=== PATIENT | female | born 1955 | race Caucasian/White ===

== ENCOUNTER 2018-12-01 07:15 | Inpatient (IN) ==
[2018-12-01] MEDS ORDERED: KETOROLAC 15 MG/1 ML VIAL IV PRN (08:39)
[2018-12-01] MEDS ORDERED: ACETAMINOPHEN 325 MG TABLET PO PRN (08:39)
[2018-12-01] MEDS ORDERED: ROPIVACAINE 0.5% 30 ML VIAL ONE (12:10)
[2018-12-01] MEDS: LACTATED RINGERS 1,000 ML IV SCH ×2 (12:13→17:44)
[2018-12-01 12:26] LABS: Apearance,Urine CLEAR (Clear); Bilirubin,Urine Negative (Negative); Blood, Urine Negative (Negative); Glucose,Urine (UA) Negative (Negative); Ketones,Urine Negative (Negative); Mucus,Urine Occasional /LPF (Occasional); Nitrite,Urine Negative (Negative); Protein,Urine 30 MG/DL; RBC,Urine 6 /HPF (0-4); Squamous Epithelial Cell,Urine Occasional /HPF (0-10); Urine Color Amber (Yellow); Urine Specific Gravity 1.025 (1.001-1.035); WBC,Urine 3 /HPF (0-6)
[2018-12-01] MEDS ORDERED: PROPOFOL 200 MG/20 ML VIAL IV ONE (12:42)
[2018-12-01] MEDS ORDERED: MIDAZOLAM 2 MG/2 ML VIAL ONE (12:43)
[2018-12-01] MEDS ORDERED: SEVOFLURANE 1 UNIT/15 MINUTE INH ONE (12:43)
[2018-12-01] MEDS ORDERED: GLYCOPYRROLATE 0.4 MG/2 ML VIAL ONE ×2 (12:43)
[2018-12-01] MEDS ORDERED: ONDANSETRON 4 MG/2 ML VIAL ONE (12:43)
[2018-12-01] MEDS ORDERED: fentaNYL 100 MCG/2 ML VIAL ONE (12:43)
[2018-12-01] MEDS ORDERED: PHENYLEPHRINE 1 MG/10 ML SYRINGE IV ONE (12:44)
[2018-12-01] MEDS ORDERED: ROCURONIUM 100 MG/10 ML VIAL IV ONE (12:44)
[2018-12-01] MEDS ORDERED: SODIUM CHLORIDE 0.9% 100 ML IV ONE (12:44)
[2018-12-01] MEDS ORDERED: NEOSTIGMINE 10 MG/10 ML VIAL ONE (12:44)
[2018-12-01] MEDS ORDERED: SUCCINYLCHOLINE 200 MG/10 ML VIAL ONE (12:44)
[2018-12-01] MEDS ORDERED: INFLUENZA VIRUS VACCINE 0.5 ML SYRINGE IM ONE (14:13)
[2018-12-01] MEDS: cefOXitin 2,000 MG in SYRINGE 1 EACH IV SCH ×3 (15:03→23:42)
[2018-12-01] MEDS: PANTOPRAZOLE 40 MG VIAL IV SCH (15:15)
[2018-12-01] MEDS: HYDROmorphone 2 MG/1 ML VIAL IV PRN ×3 (15:15→22:37)
[2018-12-01] MEDS ORDERED: DEXTROSE 50% 25 GM/50 ML SYRINGE IV PRN (15:57)
[2018-12-01] MEDS ORDERED: GLUCAGON 1 MG VIAL IM PRN (15:57)
[2018-12-01] MEDS ORDERED: ALBUTEROL 2.5 MG/3 ML NEB RESP TX PRN (15:58)
[2018-12-01] MEDS ORDERED: ACETAMINOPHEN 650 MG SUPP RECTAL PRN (15:58)
[2018-12-01] MEDS: INSULIN LISPRO 100 UNIT/ML SUBCUT SCH ×2 (17:32→21:29)
[2018-12-01] MEDS ORDERED: SODIUM CHLORIDE 0.9% 1,000 ML IV ONE (18:56)
[2018-12-01 19:09] LABS: Hematocrit 30.9 VOL% (35.7-47.0); Hemoglobin 9.8 GM/DL (12.0-16.0)
[2018-12-01] MEDS: CLOTRIMAZOLE 1% CREAM 15 GM TUBE TOP SCH (21:35)
[2018-12-02] MEDS ORDERED: SODIUM CHLORIDE 0.9% 1,000 ML IV ONE ×2 (00:03→13:21)
[2018-12-02] MEDS: LACTATED RINGERS 1,000 ML IV SCH ×3 (02:03→18:08)
[2018-12-02 04:43] LABS: Basophils % 0.2 % (0.0-0.8); Eosinophils # 0.1 10*3/uL (0.0-0.87); Eosinophils % 0.6 % (0.00-10.9); Hematocrit 33.3 VOL% (35.7-47.0); Hemoglobin 10.4 GM/DL (12.0-16.0); Immature Granulocytes % 0.5 %; Immature Granulocytes Absolute 0.07 #; Lymphocytes % 7.5 % (21.3-54.2); Mean Corpuscular HGB Conc 31.2 GM/DL (32-36); Mean Corpuscular Hemoglobin 30 PG (27-34); Mean Platelet Volume 11.3 FL (9.6-12.0); Monocytes # 1.2 10*3/uL (0.11-0.8); Neutrophils # 10.6 10*3/uL (1.4-7.4); Neutrophils % 82.2 % (38.7-73.9); Platelet Count 117 T/CUMM (130-400); Red Blood Count 3.47 MC/CUMM (3.8-5.5); Red Cell Distribution Width 15.3 % (9.3-17.3); White Blood Count 12.9 T/CUMM (4-12)
[2018-12-02] MEDS: cefOXitin 2,000 MG in SYRINGE 1 EACH IV SCH ×3 (05:10→23:45)
[2018-12-02 05:11] LABS: Albumin 2.2 G/DL (3.4-5.0); Bilirubin,Total 1.8 MG/DL (0.2-1.0); Calcium 7.6 MG/DL (8.5-10.1); Osmolality,Calculated 287.3 MOS/KG (273-304); Potassium 3.7 MMOL/L (3.5-5.1); Total Protein 5.2 G/DL (6.4-8.3)
[2018-12-02] MEDS: HYDROmorphone 2 MG/1 ML VIAL IV PRN ×2 (05:24→10:54)
[2018-12-02] MEDS: INSULIN LISPRO 100 UNIT/ML SUBCUT SCH ×3 (06:03→18:07)
[2018-12-02] MEDS: PANTOPRAZOLE 40 MG VIAL IV SCH (09:30)
[2018-12-02] MEDS: CLOTRIMAZOLE 1% CREAM 15 GM TUBE TOP SCH ×2 (09:37→21:22)
[2018-12-02] MEDS ORDERED: ALBUMIN 25% 25 GM in PREMIX 1 EACH IV ONE (13:20)
[2018-12-03] MEDS: INSULIN LISPRO 100 UNIT/ML SUBCUT SCH ×4 (00:03→19:21)
[2018-12-03] MEDS: LACTATED RINGERS 1,000 ML IV SCH ×4 (01:35→19:45)
[2018-12-03] MEDS: cefOXitin 2,000 MG in SYRINGE 1 EACH IV SCH ×4 (05:25→22:53)
[2018-12-03] MEDS ORDERED: MAGNESIUM SULF RIDER 2 GM in PREMIX 1 EACH IV ONE (08:56)
[2018-12-03] MEDS: PANTOPRAZOLE 40 MG VIAL IV SCH (10:14)
[2018-12-03] MEDS: PANTOPRAZOLE 40 MG TABLET PO SCH ×2 (11:19→21:51)
[2018-12-03] MEDS: CLARITHROMYCIN 500 MG TABLET PO SCH ×2 (11:31→21:50)
[2018-12-03] MEDS: BISMUTH SUBSALICYLATE 30 ML/524 MG 240 ML/BOTTLE PO SCH ×3 (11:31→22:53)
[2018-12-03] MEDS: metroNIDAZOLE 250 MG TABLET PO SCH ×2 (11:33→19:37)
[2018-12-03] MEDS: SKIN HEALING OINT (AQUAPHOR) 50 GM TUBE TOP SCH (11:52)
[2018-12-03] MEDS: CLOTRIMAZOLE 1% CREAM 15 GM TUBE TOP SCH ×2 (11:53→21:51)
[2018-12-03] MEDS ORDERED: ALBUTEROL 2.5 MG/3 ML NEB RESP TX PRN (15:00)
[2018-12-04] MEDS: metroNIDAZOLE 250 MG TABLET PO SCH ×4 (01:05→19:16)
[2018-12-04] MEDS: INSULIN LISPRO 100 UNIT/ML SUBCUT SCH ×4 (01:05→19:15)
[2018-12-04] MEDS: HYDROmorphone 2 MG/1 ML VIAL IV PRN ×2 (01:45→19:13)
[2018-12-04] MEDS: ONDANSETRON 4 MG/2 ML VIAL IV PRN (03:21)
[2018-12-04] MEDS: cefOXitin 2,000 MG in SYRINGE 1 EACH IV SCH ×3 (05:18→16:51)
[2018-12-04] MEDS: BISMUTH SUBSALICYLATE 30 ML/524 MG 240 ML/BOTTLE PO SCH ×3 (05:18→19:15)
[2018-12-04 05:38] LABS: Basophils % 0.2 % (0.0-0.8); Eosinophils # 0.2 10*3/uL (0.0-0.87); Hematocrit 27.6 VOL% (35.7-47.0); Hemoglobin 8.5 GM/DL (12.0-16.0); Immature Granulocytes % 0.5 %; Immature Granulocytes Absolute 0.03 #; Lymphocytes # 0.7 10*3/uL (1.4-4.0); Lymphocytes % 12.1 % (21.3-54.2); Mean Corpuscular HGB Conc 30.8 GM/DL (32-36); Mean Corpuscular Hemoglobin 30 PG (27-34); Mean Corpuscular Volume 95.8 FL (87-102); Mean Platelet Volume 11.2 FL (9.6-12.0); Monocytes # 0.5 10*3/uL (0.11-0.8); Monocytes % 7.9 % (1.7-12.7); Neutrophils # 4.4 10*3/uL (1.4-7.4); Neutrophils % 75.3 % (38.7-73.9); Red Blood Count 2.88 MC/CUMM (3.8-5.5); Red Cell Distribution Width 14.9 % (9.3-17.3)
[2018-12-04 05:40] LABS: Platelet Count 86 T/CUMM (130-400); White Blood Count 5.8 T/CUMM (4-12)
[2018-12-04 05:52] LABS: Calcium 7.7 MG/DL (8.5-10.1); Osmolality,Calculated 288.8 MOS/KG (273-304); Potassium 3.2 MMOL/L (3.5-5.1)
[2018-12-04 06:04] LABS: Hypochromasia 1+; Ovalocytes Slight; Platelet Estimate Decreased
[2018-12-04] MEDS: CLARITHROMYCIN 500 MG TABLET PO SCH ×3 (08:36→21:39)
[2018-12-04] MEDS: LACTATED RINGERS 1,000 ML IV SCH ×3 (08:36→13:10)
[2018-12-04] MEDS: PANTOPRAZOLE 40 MG TABLET PO SCH ×3 (08:37→21:39)
[2018-12-04] MEDS: POTASSIUM CHLORIDE RIDER 10 MEQ in PREMIX 1 EACH IV PRN ×4 (08:37→19:20)
[2018-12-04] MEDS ORDERED: MAGNESIUM SULF RIDER 2 GM in PREMIX 1 EACH IV ONE (15:36)
[2018-12-04] MEDS: SKIN HEALING OINT (AQUAPHOR) 50 GM TUBE TOP SCH (19:15)
[2018-12-04] MEDS: CLOTRIMAZOLE 1% CREAM 15 GM TUBE TOP SCH ×2 (19:16→22:47)
[2018-12-05] MEDS: metroNIDAZOLE 250 MG TABLET PO SCH ×5 (00:50→22:15)
[2018-12-05] MEDS: cefOXitin 2,000 MG in SYRINGE 1 EACH IV SCH ×4 (00:51→16:56)
[2018-12-05] MEDS: BISMUTH SUBSALICYLATE 30 ML/524 MG 240 ML/BOTTLE PO SCH ×3 (00:51→11:51)
[2018-12-05] MEDS: INSULIN LISPRO 100 UNIT/ML SUBCUT SCH ×4 (00:51→17:37)
[2018-12-05 05:19] LABS: Calcium 7.6 MG/DL (8.5-10.1); Osmolality,Calculated 287.1 MOS/KG (273-304); Potassium 3.5 MMOL/L (3.5-5.1)
[2018-12-05] MEDS: LACTATED RINGERS 1,000 ML IV SCH (06:52)
[2018-12-05 08:41] LABS: Basophils % 0.3 % (0.0-0.8); Eosinophils # 0.3 10*3/uL (0.0-0.87); Eosinophils % 4.5 % (0.00-10.9); Hematocrit 28.4 VOL% (35.7-47.0); Hemoglobin 8.9 GM/DL (12.0-16.0); Immature Granulocytes % 0.5 %; Immature Granulocytes Absolute 0.03 #; Lymphocytes # 0.9 10*3/uL (1.4-4.0); Lymphocytes % 14.3 % (21.3-54.2); Mean Corpuscular HGB Conc 31.3 GM/DL (32-36); Mean Corpuscular Hemoglobin 30 PG (27-34); Mean Corpuscular Volume 96.6 FL (87-102); Mean Platelet Volume 11.4 FL (9.6-12.0); Monocytes # 0.6 10*3/uL (0.11-0.8); Monocytes % 9.2 % (1.7-12.7); Neutrophils # 4.4 10*3/uL (1.4-7.4); Neutrophils % 71.2 % (38.7-73.9); Red Blood Count 2.94 MC/CUMM (3.8-5.5); Red Cell Distribution Width 15.1 % (9.3-17.3); White Blood Count 6.2 T/CUMM (4-12)
[2018-12-05 08:44] LABS: Platelet Count 89 T/CUMM (130-400)
[2018-12-05] MEDS: PANTOPRAZOLE 40 MG TABLET PO SCH ×2 (09:52→20:01)
[2018-12-05] MEDS: SKIN HEALING OINT (AQUAPHOR) 50 GM TUBE TOP SCH (09:52)
[2018-12-05] MEDS: CLOTRIMAZOLE 1% CREAM 15 GM TUBE TOP SCH ×2 (09:52→20:01)
[2018-12-05] MEDS: CLARITHROMYCIN 500 MG TABLET PO SCH ×2 (09:52→20:01)
[2018-12-05] MEDS ORDERED: TUBERCULIN SKIN TEST 0.1 ML SYRINGE INTRADERM ONE (10:31)
[2018-12-05] MEDS: ONDANSETRON 4 MG/2 ML VIAL IV PRN (22:14)
[2018-12-05] MEDS: HYDROmorphone 2 MG/1 ML VIAL IV PRN (22:14)
[2018-12-06] MEDS: cefOXitin 2,000 MG in SYRINGE 1 EACH IV SCH ×4 (01:00→17:09)
[2018-12-06] MEDS: INSULIN LISPRO 100 UNIT/ML SUBCUT SCH ×3 (02:14→11:56)
[2018-12-06] MEDS: metroNIDAZOLE 250 MG TABLET PO SCH ×3 (02:23→11:21)
[2018-12-06 06:46] LABS: Basophils % 0.3 % (0.0-0.8); Eosinophils # 0.3 10*3/uL (0.0-0.87); Eosinophils % 4.2 % (0.00-10.9); Hematocrit 29.7 VOL% (35.7-47.0); Hemoglobin 9.2 GM/DL (12.0-16.0); Immature Granulocytes % 0.6 %; Immature Granulocytes Absolute 0.04 #; Lymphocytes # 0.8 10*3/uL (1.4-4.0); Lymphocytes % 12.4 % (21.3-54.2); Mean Corpuscular Hemoglobin 30 PG (27-34); Mean Corpuscular Volume 96.4 FL (87-102); Mean Platelet Volume 11.4 FL (9.6-12.0); Monocytes # 0.5 10*3/uL (0.11-0.8); Monocytes % 8.4 % (1.7-12.7); Neutrophils # 4.8 10*3/uL (1.4-7.4); Neutrophils % 74.1 % (38.7-73.9); Platelet Count 85 T/CUMM (130-400); Red Blood Count 3.08 MC/CUMM (3.8-5.5); White Blood Count 6.5 T/CUMM (4-12)
[2018-12-06 06:54] LABS: Calcium 7.6 MG/DL (8.5-10.1); Potassium 3.5 MMOL/L (3.5-5.1)
[2018-12-06 07:16] LABS: Platelet Estimate Decreased
[2018-12-06 07:17] LABS: Anisocytosis Slight
[2018-12-06] MEDS: SKIN HEALING OINT (AQUAPHOR) 50 GM TUBE TOP SCH (08:34)
[2018-12-06] MEDS: CLOTRIMAZOLE 1% CREAM 15 GM TUBE TOP SCH (08:34)
[2018-12-06] MEDS: PANTOPRAZOLE 40 MG TABLET PO SCH (08:34)
[2018-12-06] MEDS: CLARITHROMYCIN 500 MG TABLET PO SCH (08:34)
[2018-12-06 17:47] VITALS: BP 145/57
== END 2018-12-06 18:00 | DRG 326 ==
LOC: EDBD → EDUNIT# → N.ED 07:15 → N.3E 10:15 → N.CC 11:45 → N.5E 12-03 14:56
PROVIDERS: ADMIT Surgery; ATTEND Surgery